=== PATIENT | male | born 1940 | race Caucasian/White ===

== ENCOUNTER → 2022-08-10 | Outpatient (CLI) | payer MEDICARE, OTHER | END | disposition home or self-care (01) | LOC: LAB SHORT 14:57 | DX: D04.39 Carcinoma in situ of skin of other parts of face (principal) | CPT/HCPCS: 88305 ==

== ENCOUNTER 2023-11-29 00:13 | Inpatient (IN) | payer MEDICARE, BC ==
[2023-11-29] VITALS (8 sets, daily range): BP systolic 108–165; BP diastolic 54–72
[~2023-11-29] VITALS: Ht 182.9 cm; Wt 78.9 kg
[2023-11-29] MEDS ORDERED: Acetaminophen 325 MG TABLET PO PRN (02:15)
[2023-11-29] MEDS ORDERED: Nitroglycerin 0.4 MG SUBL SL PRN (02:20)
[2023-11-29] MEDS ORDERED: Ondansetron 4 MG TAB PO PRN (02:20)
[2023-11-29] MEDS ORDERED: Lactated Ringer's 1,000 ML IV SCH (03:00)
[2023-11-29] MEDS ORDERED: Heparin Sodium,Porcine/0.5 NS 500 ML IV SCH (03:05)
[2023-11-29] MEDS ORDERED: ASPI81CH PO (04:16)
[2023-11-29 04:31] LABS: BASOPHILS ABSOLUTE AUTO 0.03 K/mm3 (0.00-0.23); BASOPHILS PERCENT AUTO 1 % (0-2); EOSINOPHILS ABSOLUTE AUTO 0.08 K/mm3 (0.00-0.68); EOSINOPHILS PERCENT AUTO 1 % (0-6); Hematocrit 42.3 % (37.0-53.0); IMMATURE GRAN ABSOLUTE AUTO 0.01 K/mm3 (0.00-0.10); IMMATURE GRAN PERCENT AUTO 0 % (0-1); LYMPHOCYTES ABSOLUTE AUTO 2.14 K/mm3 (0.84-5.20); LYMPHOCYTES PERCENT AUTO 33 % (21-46); MONOCYTES ABSOLUTE AUTO 0.46 K/mm3 (0.16-1.47); MONOCYTES PERCENT AUTO 7 % (4-13); Mean Corpuscular HGB 29.5 pg (26.0-34.0); Mean Corpuscular HGB Conc 33.1 g/dL (31.5-36.5); Mean Corpuscular Volume 89 fL (80-100); Mean Platelet Volume 9.9 fL (9.1-12.4); NEUTROPHILS ABSOLUTE AUTO 3.87 K/mm3 (1.96-9.15); NEUTROPHILS PERCENT AUTO 59 % (41-73); Platelet Count 157 K/mm3 (150-400); RDW Coefficient Variation 12.4 % (11.7-14.2); RDW Standard Deviation 41.1 fL (35.1-46.3); Red Blood Cell Count 4.74 M/mm3 (4.30-5.90); White Blood Cell Count 6.59 K/mm3 (4.00-11.30)
[2023-11-29 05:09] LABS: Alanine Aminotransfer (ALT/SGP 20 U/L (12-78); Albumin, Blood 3.3 g/dL (3.4-5.0); Albumin/Globulin Ratio 1.1 (0.8-1.8); Alk Phos 56 U/L (50-136); Anion Gap 7 mmol/L (3-11); Aspartate Aminotrans (AST/SGOT 20 U/L (12-37); Bilirubin, Total 0.4 mg/dL (0.1-1.0); Blood Urea Nitrogen 15 mg/dL (8-24); Bun/Creatinine Ratio 16.8 (12.0-20.0); CHOL/HDL RATIO 2.1; CO2, Blood 28 mmol/L (21-32); Calcium, Blood 8.8 mg/dL (8.5-10.1); Chloride, Blood 111 mmol/L (98-108); Cholesterol 120 mg/dL (50-200); Creatinine, Blood 0.89 mg/dL (0.60-1.20); Glomerular Filtration Rate 85 (60-); Glucose, Blood 130 mg/dL (70-99); HDL Cholesterol 56 mg/dL (>39); Low Density Lipoprotein Chol 56 mg/dL (0-110); Magnesium, Blood 2.2 mg/dL (1.6-2.4); Potassium, Blood 3.8 mmol/L (3.5-5.5); Sodium, Blood 142 mmol/L (136-145); Total Protein, Blood 6.3 g/dL (6.4-8.2); Triglycerides 38 mg/dL (30-160); Very Low Density Lipoprot Chol 7 mg/dL (6-32)
[2023-11-29 05:14] LABS: International Normalized Ratio 1.01; Prothrombin Time Results 10.8 Sec (9.7-11.5)
--- NOTE | 2023-11-29 05:50 | NUR ---
0155 Pt arrived on unit as direct admit from [facility] via EMS. Ambulate with 1 person assist from [facility] in hallway into bed in room 16. informed of pt arrival. Pt changed into hospital gown, oriented to unit and room per unit standards. Pt alert but appears to have some memory loss as pt is only oriented to self and can report "I am in the hospital but don't know where." Pt also having trouble retaining info/education as he will ask questions that have already been answered. It is unclear what pt baseline is as pt spouse not here with pt at this time. MD phoned but was unable to reach . Admit will be finished when arrives. Pt was able to rest inbetween nursing interventions. Tele shows sinus arrhythmia and pt rate dipping into mid 40s bpm with freq 2 second pauses though VSS throughout. MD notified and no new orders received. Please see full assessment for additional details. No fither complaints or concerns at this time, will continue to monitor.
[2023-11-29] MEDS ORDERED: Aspirin 81 MG Chew PO SCH (09:00)
[2023-11-29] MEDS ORDERED: Atorvastatin 40 MG Tab PO SCH (09:00)
[2023-11-29] MEDS ORDERED: Losartan Potassium 25 MG Tab PO SCH (09:00)
[2023-11-29] MEDS ORDERED: NS 1,000 ML IV ONE ×2 (10:41→10:50)
[2023-11-29] MEDS ORDERED: NS 250 ML IV ONE (10:41)
[2023-11-29] MEDS ORDERED: Verapamil HCL 2.5 MG/ML 2ML Injection ONE (10:41)
[2023-11-29] MEDS ORDERED: Heparin Sodium 1000 Units/ML 10ML MDV ONE (10:41)
[2023-11-29] MEDS ORDERED: Nitroglycerin 2 MG/20 ML BTL ONE (10:42)
[2023-11-29] MEDS ORDERED: FentaNYL Citrate 50 MCG/ML 2 ML Injection ONE (10:49)
[2023-11-29] MEDS ORDERED: Midazolam HCl 1MG / ML 2ML Vial ONE (10:50)
--- NOTE | 2023-11-29 11:10 | NUR ---
PT TO [employer] [facility] AT 1110 VIA HOSPITAL BED AND ON RA. HEP GTT STOPPED AND LAB NOTIFIED.
--- NOTE | 2023-11-29 12:14 | NUR ---
PT ARRIVED FROM [employer] [facility] AT 1205. REPORT RECIEVED FROM HC NURSE AT BEDSIDE. TR BAND ON RIGHT WRIST, NO BLEEDING, HEMATOMA, OR TENDERNESS NOTED.
[2023-11-29] MEDS ORDERED: Flomax0.4 MG PO (14:31)
[2023-11-29] MEDS ORDERED: ATOR80 PO (14:31)
--- NOTE | 2023-11-29 18:22 | NUR ---
SHIFT SUMMARY PT IS A/OX3. PT GETS CONFUSED AND STARTS TO TUGG AT LINES AND WIRES. AT BEGINNING OF SHIFT HE FORGOT WHY HE WAS AT THE HOSPITAL. PT IS ON RA SATING IN LOW TO MID 90'S. NO COMPLAINTS OF SOB OR CHEST PRESSURE AT THIS TIME. HR IS SINUS EDER IN THE 50'S. ECHO WAS COMPLETED THIS MORNING. TROPONIN LEVELS WERE TRENDING UP AND ARE NOW TRENDING BACK DOWN. ANGIOGRAM WAS ALSO COMPLETED TODAY. TR BAND HAS BEENREMOVED AND COBERED WITH CLEAR TEGADERM. PT IS ABLE TO USE BEDSIDE URINAL. SBA WITH TRANSFERS. NO ABDOMINAL DISCOMFORT OR TENDERNESS AT THIS TIME. NO TROUBLE WITH BM. PT WAS SWITCHED FROM NPO TO A REGULAR DIET. PT IS IN BED, WITH TV ON, BED ALARM ON, AND CALL LIGHT IN REACH.
--- NOTE | 2023-11-29 19:24 | NUR ---
TR AND RECOVERED AT 1740. CLEAR TEGADERM IN PLACE. NO BLEEDING, HEMATOMA OR TENDERNESS NOTED. PT INSTRUCTED TO WATCH FOR BLEEDING AND NOTIFY STAFF IMMEDIATELY IF THERE IS BLOOD AT SITE. PT INSTRUCTED NOT TO BEND HIS WRIST, ARM BOARD IN PLACE. PT MOVED FROM PCU 16 TO PCU 11 AT ABOUT THE SAME TIME OF TR BAND RECOVERY TIME. PT ENDORSED SOME CONFUSION, PT [facility]
--- NOTE | 2023-11-29 19:33 | NUR ---
THIS RN REVIEWED STUDENT RN NOTES AND CHARTING.
[2023-11-30 03:54] VITALS: BP 122/68
[2023-11-30 04:24] LABS: BASOPHILS ABSOLUTE AUTO 0.02 K/mm3 (0.00-0.23); BASOPHILS PERCENT AUTO 0 % (0-2); EOSINOPHILS ABSOLUTE AUTO 0.15 K/mm3 (0.00-0.68); EOSINOPHILS PERCENT AUTO 3 % (0-6); Hematocrit 43.5 % (37.0-53.0); Hemoglobin 13.9 g/dL (13.5-17.5); IMMATURE GRAN ABSOLUTE AUTO 0.01 K/mm3 (0.00-0.10); IMMATURE GRAN PERCENT AUTO 0 % (0-1); LYMPHOCYTES ABSOLUTE AUTO 1.87 K/mm3 (0.84-5.20); LYMPHOCYTES PERCENT AUTO 34 % (21-46); MONOCYTES ABSOLUTE AUTO 0.47 K/mm3 (0.16-1.47); MONOCYTES PERCENT AUTO 9 % (4-13); Mean Corpuscular HGB 29.4 pg (26.0-34.0); Mean Corpuscular Volume 92 fL (80-100); Mean Platelet Volume 9.8 fL (9.1-12.4); NEUTROPHILS ABSOLUTE AUTO 3.02 K/mm3 (1.96-9.15); NEUTROPHILS PERCENT AUTO 54 % (41-73); Platelet Count 155 K/mm3 (150-400); RDW Coefficient Variation 12.5 % (11.7-14.2); RDW Standard Deviation 42.8 fL (35.1-46.3); Red Blood Cell Count 4.72 M/mm3 (4.30-5.90); White Blood Cell Count 5.54 K/mm3 (4.00-11.30)
[2023-11-30 04:50] LABS: Albumin, Blood 3.1 g/dL (3.4-5.0); Bilirubin, Total 0.6 mg/dL (0.1-1.0); Bun/Creatinine Ratio 18.5 (12.0-20.0); Calcium, Blood 9.2 mg/dL (8.5-10.1); Creatinine, Blood 0.87 mg/dL (0.60-1.20); Total Protein, Blood 6.1 g/dL (6.4-8.2)
--- NOTE | 2023-11-30 05:54 | NUR ---
1915 Assumed care of pt, bedside report completed and R radial site assessed. Shift plan of care reviewed with pt and all questions answered. Pt with significant short term memory loss, will reinforce frequently plan of care. Pt with uneventful shift. Repeatedly denies pain, VSS and R radial site WNL. Pt needs frequent reinforcement/encouragement to keep arm board on R wrist. Please see full assessment for additional details. No further complaints or concerns at this time, will continue to monitor.
[2023-11-30 08:02] VITALS: BP 162/54
[2023-11-30 08:11] VITALS: BP 162/64
[2023-11-30] MEDS ORDERED: Clopidogrel Bisulfate 75 MG Tab PO SCH (09:00)
[2023-11-30 09:25] VITALS: BP 162/67
[2023-11-30] MEDS ORDERED: Empagliflozin 10 MG TAB PO SCH (10:00)
[2023-11-30] MEDS ORDERED: CLOP75 PO (11:49)
[2023-11-30] MEDS ORDERED: JARDIANCE10 MG PO (11:50)
[2023-11-30] MEDS ORDERED: LOSARTAN POTASS25 M1 PO (11:51)
[2023-11-30 11:52] VITALS: BP 145/75
[2023-11-30] MEDS ORDERED: NITR.4SL SL (11:52)
--- NOTE | 2023-11-30 13:42 | NUR ---
DISCHARGE UPDATE DISCHARGE PACKET GONE OVER WITH PT AND SPOUSE AT 1300. PT DISCHARGED AT 1320 VIA WHEELCHAIR AND ON RA. PT ABLE TO TRANSFER SELF TO AND FROM WHEELCHAIR. ARM BOARD IN PLACE ON RIGHT ARM. TR BAND SITE C/D/I/ WITH NO BLEEDING OR HEMATOMA NOTED. DISCHARGE PACKET IN PT'S PERSONAL BELONGING BAG AND WITH SPOUSE AT TIME OF DISCHARGE.
--- NOTE | 2023-11-30 14:21 | NUR ---
THIS RN REVIEWED STUDENT RN'S NOTES AND CHARTING AND AGREES WITH STUDENT.
== END 2023-11-30 13:38 | disposition home or self-care (01) | DRG 282 ==
LOC: PCU 00:13
PROVIDERS: Student in an Organized Health Care Education/Training Program; ADMIT Student in an Organized Health Care Education/Training Program
PROC: B2111ZZ Fluoroscopy of Multiple Coronary Arteries using Low Osmolar Contrast (ICD-10-PCS; principal; 2023-11-29)
DX: I21.4 Non-ST elevation (NSTEMI) myocardial infarction (principal); I44.0 Atrioventricular block, first degree; I25.10 Atherosclerotic heart disease of native coronary artery without angina pectoris; I10 Essential (primary) hypertension; I51.89 Other ill-defined heart diseases; E78.5 Hyperlipidemia, unspecified; N40.0 Benign prostatic hyperplasia without lower urinary tract symptoms; I24.9 Acute ischemic heart disease, unspecified; G31.84 Mild cognitive impairment of uncertain or unknown etiology; Z79.82 Long term (current) use of aspirin
CPT/HCPCS: 36415; 76937; 80053; 80061; 82947; 83036; 83735; 84443; 84484; 85025; 85520; 85610; 93306; 93454; 99152; A9270; C1769; C1894; J1644; J2250; J3010; J7030; J7050; J7120; Q9967